=== PATIENT | male | born 1950 | race Caucasian/White ===

== ENCOUNTER 2016-11-09 10:36 | Emergency (ER) | payer MEDICARE ==
[2016-11-09 11:02] VITALS: RESP 20; O2SAT 96
[2016-11-09 12:00] LABS: BASO # 0.1 K/uL (0.0-0.2); BASO % 0.8 % (0.0-2.0); EOS # 0.3 K/uL (0.0-0.7); EOS % 3.9 % (0.0-4.0); HEMATOCRIT 28.8 % (35.0-51.0); LYMPH # 1.1 K/uL (1.0-4.3); LYMPH % 14.1 % (20.0-40.0); MEAN CELL VOLUME 62.7 fL (80.0-94.0); MEAN CORPUSCULAR HEMOGLOBIN 18.2 pg (27.0-31.0); MEAN CORPUSCULAR HGB CONC 29.1 g/dL (33.0-37.0); MEAN PLATELET VOLUME 9.8 fL (7.2-11.7); MONO # 0.4 K/uL (0.0-0.8); MONO % 5.7 % (0.0-10.0); NRBC % 0.2 % (0.0-2.0); RED CELL DISTRIBUTION WIDTH 18.5 % (11.5-14.5); WHITE BLOOD COUNT 7.6 K/uL (4.8-10.8)
[2016-11-09 12:05] LABS: ALB/GLOB RATIO 1.3 (1.0-2.1); ALKALINE PHOSPHATASE 50 U/L (38-126); ALT/SGPT 24 U/L (21-72); AST/SGOT 22 U/L (17-59); BILIRUBIN,TOTAL 0.5 mg/dL (0.2-1.3); BLOOD UREA NITROGEN 12 mg/dL (9-20); CARBON DIOXIDE 23 mmol/L (22-30); CHLORIDE 99 mmol/L (98-107); GFR AFRICAN-AMERICAN > 60; GLUCOSE,RANDOM 102 mg/dL (75-110); SODIUM 137 mmol/L (132-148); TOTAL PROTEIN 6.9 g/dL (6.3-8.3)
--- NOTE | 2016-11-09 13:11 | C.PDOC ---
History Of Present Illness 66 y/o male, with past medical history of HTN, hypercholesterolemia, and prostate disease, presents to Emergency Department for evaluation of dizziness associated with nausea since this morning. Pt states that dizziness is worse with head movement and when walking. Notes that he feels nauseous when sitting up. Pt states that he has had difficulty sleeping for the past several months. Pt notes that he stopped taking his Ambien and Lorazepam because it was not improving his symptoms. Otherwise, denies any visual changes, abdominal pain, diarrhea, headache, change in sensation, chest pain, shortness of breath, fever , chills, or any other associated symptoms at this time. Time Seen by Provider: 11/09/16 12:12 Chief Complaint (Nursing): Dizziness/Lightheaded History Per: Patient History/Exam Limitations: no limitations Onset/Duration Of Symptoms: Days Current Symptoms Are (Timing): Still Present Possible Causative Factor(s): Vertigo Severity: None Pain Scale Rating Of: 0 Recent travel outside of the [place]: No Additional History Per: Patient Past Medical History Reviewed: Historical Data, Nursing Documentation, Vital Signs Vital Signs: Last Vital Signs Temp 97.8 F 11/09/16 15:56 Pulse 67 11/09/16 15:56 Resp 20 11/09/16 15:56 BP 138/80 11/09/16 15:56 Pulse Ox 96 11/09/16 15:56 - Medical History PMH: HTN, Hypercholesterolemia Family History: States: Unknown Family Hx - Social History Hx Alcohol Use: No Hx Substance Use: No - Immunization History Hx Tetanus Toxoid Vaccination: No Hx Influenza Vaccination: No Hx Pneumococcal Vaccination: No Review Of Systems Except As Marked, All Systems Reviewed And Found Negative. Constitutional: Negative for: Fever, Chills Cardiovascular: Negative for: Chest Pain, Palpitations Respiratory: Negative for: Cough, Shortness of Breath Gastrointestinal: Positive for: Nausea. Negative for: Vomiting, Abdominal Pain , Diarrhea, Constipation Genitourinary: Negative for: Dysuria, Frequency, Hematuria Skin: Negative for: Rash, Bruising Neurological: Positive for: Dizziness. Negative for: Weakness, Numbness, Incoordination, Change in Speech, Confusion, Headache Psych: Positive for: Other (difficulty falling asleep). Negative for: Suicidal ideation Physical Exam - Physical Exam Appears: Non-toxic, No Acute Distress Skin: Normal Color, Warm, Dry, No Rash Head: Atraumatic, Normacephalic Eye(s): bilateral: Normal Inspection, PERRL, EOMI Nose: Normal Oral Mucosa: Moist Neck: Normal ROM, Supple Chest: Symmetrical Cardiovascular: Rhythm Regular, No Murmur Respiratory: Normal Breath Sounds, No Rales, No Rhonchi, No Wheezing Gastrointestinal/Abdominal: Soft, No Tenderness Extremity: Normal ROM, No Pedal Edema, No Deformity Extremity: Bilateral: Atraumatic, Normal Color And Temperature, Normal ROM Neurological/Psych: Oriented x3, Normal Speech, Normal Cognition, Normal Cranial Nerves, Normal Motor, Normal Sensation Gait: Steady ED Course And Treatment - Laboratory Results Result Diagrams: 11/09/16 11:43 11/09/16 11:43 O2 Sat by Pulse Oximetry: 96 (on RA) Pulse Ox Interpretation: Normal Medical Decision Making Medical Decision Making: Blood work, head CT, EKG ordered and reviewed. Patient feeling better, will d/c with PMD follow up. Disposition Counseled Patient/Family Regarding: Studies Performed, Need For Followup, Rx Given - Disposition Disposition Time: 17:55 Condition: STABLE Prescriptions: Ibuprofen [Motrin] 600 mg PO TID #15 tab Meclizine [Meclizine*] 25 mg PO Q6 #30 tab Instructions: Vertigo (ED) Forms: Gen Discharge Inst [place], Work Excuse, [facility] ([place]) - POA Present On Arrival: None - Clinical Impression Clinical Impression: Vertigo - Scribe Statement The provider has reviewed the documentation as recorded by the Rolandoibalbaro Ray All medical record entries made by the Scribe were at my direction and personally dictated by me. I have reviewed the chart and agree that the record accurately reflects my personal performance of the history, physical exam, medical decision making, and the department course for this patient. I have also personally directed, reviewed, and agree with the discharge instructions and disposition.
--- NOTE | 2016-11-09 16:02 | CT ---
PROCEDURE: CT HEAD WITHOUT CONTRAST. HISTORY: dizzy COMPARISON: None available. TECHNIQUE: Axial computed tomography images were obtained through the head/brain without intravenous contrast. Radiation dose: Total exam DLP = 765 mGy-cm. This CT exam was performed using one or more of the following dose reduction techniques: Automated exposure control, adjustment of the mA and/or kV according to patient size, and/or use of iterative reconstruction technique. FINDINGS: HEMORRHAGE: No intracranial hemorrhage. BRAIN: No mass effect or edema. Limited expansion of the ventricular sulcal and cisternal spaces appreciated compatible diffuse cerebral atrophy. There is no mass effect. There is no cortical edema identified throughout to suggest potential acute or subacute brain infarction. No suspicious extra-axial fluid collection. VENTRICLES: Unremarkable. No hydrocephalus. CALVARIUM: Unremarkable. PARANASAL SINUSES: Unremarkable as visualized. No significant inflammatory changes. MASTOID AIR CELLS: Unremarkable as visualized. No inflammatory changes. OTHER FINDINGS: None. IMPRESSION: Mild age related neuro degenerate change are identified without definite acute intracranial findings by standard CT criteria. Follow-up CT or MRI are available as clinically warranted.
[2016-11-09] MEDS ORDERED: Sodium Chloride 0.9% 1,000 ML IV ONE (16:13)
[2016-11-09] MEDS ORDERED: Sodium Chloride 0.9% 1,000 ML ONE (16:36)
[2016-11-09 18:43] VITALS: BP 163/92; PULSE 68; TEMP 97.7
--- NOTE | 2016-11-10 15:05 | CARD ---
APPROVED REPORT EKG Measurement Heart [id number] <Conclusion> Normal sinus rhythm Inferior infarct, age undetermined Abnormal ECG
== END 2016-11-09 18:42 | disposition home or self-care (01) ==
LOC: C.ER 10:36
DX: R42 Dizziness and giddiness (principal); I10 Essential (primary) hypertension; E78.00 Pure hypercholesterolemia, unspecified
CPT/HCPCS: 70450; 80053; 84484; 85025; 93005; 96360; 99285; J7040